=== PATIENT | male | born 1980 | race Caucasian/White ===

== ENCOUNTER 2020-08-07 10:27 | Emergency (ER) | payer SELFPAY ==
--- NOTE | 2020-08-07 12:29 | EDPHYS ---
Physician Documentation [facility] Name: Adrian Pires Age: 39 yrs Sex: Male : 1980 Arrival Date: 08/07/2020 Time: 10: Bed 17 Private MD: ED Physician Tulio Cervantes HPI: 08/07 12:25 This 39 yrs old Male presents to ER via Ambulatory with complaints of Fever, jr8 Congestion, Cough. 12:25 The patient reports fever, with an emergency department temperature of 99.5 degrees jr8 Fahrenheit. Onset: The symptoms/episode began/occurred gradually, 3 day(s) ago. Modifying factors: there are no obvious modifying factors. Associated signs and symptoms: Pertinent positives: cough, myalgias, runny nose, sinus congestion. Severity of symptoms: At their worst the symptoms were mild in the emergency department the symptoms are unchanged. The patient has not experienced similar symptoms in the past. The patient has not recently seen a physician. Historical: - Allergies: 10:43 Tramadol HCl; ll1 - PMHx: 10:43 HIV; Hep C-resolved; ll1 - PSHx: 10:43 kidney stone SX; ll1 - Immunization history:: Flu vaccine is not up to date. - Social history:: Smoking status: Patient denies any tobacco usage or history of. ROS: 12:25 Constitutional: Positive for body aches, chills, fatigue, fever. jr8 12:25 ENT: Positive for rhinorrhea, sinus congestion. 12:25 Respiratory: Positive for cough, Negative for dyspnea on exertion, shortness of breath, sputum production, wheezing. 12:25 Neuro: Positive for headache. 12:25 All other systems are negative. Exam: 12:25 Constitutional: This is a well developed, well nourished patient who is awake, alert, jr8 and in no acute distress. Eyes: Pupils equal round and reactive to light, extra-ocular motions intact. Lids and lashes normal. Conjunctiva and sclera are non-icteric and not injected. Cornea within normal limits. Periorbital areas with no swelling, redness, or edema. ENT: Nares patent. No nasal discharge, no septal abnormalities noted. Tympanic membranes are normal and external auditory canals are clear. Oropharynx with no redness, swelling, or masses, exudates, or evidence of obstruction, uvula midline. Mucous membranes moist. Neck: Trachea midline, no thyromegaly or masses palpated, and no cervical lymphadenopathy. Supple, full range of motion without nuchal rigidity, or vertebral point tenderness. No Meningismus. Cardiovascular: Regular rate and rhythm with a normal S1 and S2. No gallops, murmurs, or rubs. Normal PMI, no JVD. No pulse deficits. Respiratory: Lungs have equal breath sounds bilaterally, clear to auscultation and percussion. No rales, rhonchi or wheezes noted. No increased work of breathing, no retractions or nasal flaring. Abdomen/GI: Soft, non-tender, with normal bowel sounds. No distension or tympany. No guarding or rebound. No evidence of tenderness throughout. Skin: Warm, dry with normal turgor. Normal color with no rashes, no lesions, and no evidence of cellulitis. MS/ Extremity: Pulses equal, no cyanosis. Neurovascular intact. Full, normal range of motion. Neuro: Awake and alert, GCS 15, oriented to person, place, time, and situation. Cranial nerves II-XII grossly intact. Motor strength 5/5 in all extremities. Sensory grossly intact. Cerebellar exam normal. Normal gait. Vital Signs: 10:40 BP 136 / 85; Pulse 86; Resp 17; Temp 99.5; Pulse Ox 97% on R/A; Weight 77.11 kg; Height ll1 5 ft. 8 in. (172.72 cm); Pain 4/10; 12:30 BP 113 / 76; Pulse 83; Resp 17 S; Pulse Ox 98% on R/A; jd3 10:40 Body Mass Index 25.85 (77.11 kg, 172.72 cm) ll1 MDM: 11:02 Patient medically screened. jr8 12:26 Data reviewed: vital signs, nurses notes, lab test result(s), and as a result, I will jr8 discharge patient. Data interpreted: Pulse oximetry: on room air is 97 %. Interpretation: normal. Counseling: I had a detailed discussion with the patient and/or guardian regarding: the historical points, exam findings, and any diagnostic results supporting the discharge/admit diagnosis, lab results, the need for outpatient follow up, a family practitioner, to return to the emergency department if symptoms worsen or persist or if there are any questions or concerns that arise at home. ED course: Discussed with patient negative SARS results. Most likely viral infection. Would treat symptomatically at this point. To f/u with PCP in a few days. If after a week still having fevers and sinus congestion or drainage to come back for reevaluation and possible need for Abx. . 08/07 12:25 Order name: SARS-COV-2 RT PCR; Complete Time: 12:26 EDTN Administered Medications: 12:32 Drug: Decadron (dexamethasone) 10 mg Route: IM; Site: right deltoid; jd3 Disposition: 16:37 Co-signature as Attending Physician, Tulio Cervantes MD I agree with the assessment and kdr plan of care. Disposition: 08/07/20 12:28 Discharged to Home. Impression: Acute upper respiratory infection, unspecified. - Condition is Stable. - Discharge Instructions: Upper Respiratory Infection, Adult. - Prescriptions for promethazine- DM 6.25-15 mg/5 mL Oral syrup - take 5 milliliter by ORAL route every 4 hours as needed; 100 milliliter. - Medication Reconciliation Form, Thank You Letter, Antibiotic Education, Prescription Opioid Use form. - Follow up: Private Physician; When: 1 week; Reason: Recheck today's complaints, Continuance of care, Re-evaluation by your physician. - Problem is new. - Symptoms are unchanged. Signatures: Dispatcher [employer] [facility] Tulio Cervantes MD MD [facility] Zackery Bahena PA PA jr8 Arnold Moreno RN RN jd3 Artur Huffman RN RN ll1 Corrections: (The following items were deleted from the chart) 11:46 11:07 CORONAVIRUS+MR.LAB.BRZ ordered. [facility] 12:53 12:28 08/07/2020 12:28 Discharged to Home. Impression: Acute upper respiratory jd3 infection, unspecified. Condition is Stable. Forms are Medication Reconciliation Form, Thank You Letter, Antibiotic Education, Prescription Opioid Use. Follow up: Private Physician; When: 1 week; Reason: Recheck today's complaints, Continuance of care, Re-evaluation by your physician. Problem is new. Symptoms are unchanged. jr8
--- NOTE | 2020-08-07 12:29 | ER ---
Nurse's Notes [facility] Name: Adrian Pires Age: 39 yrs Sex: Male : 1980 Arrival Date: 08/07/2020 Time: : Bed 17 [facility] MD: Diagnosis: Acute upper respiratory infection, unspecified Presentation: 08/07 10:40 Chief complaint: Patient states: Fever, cough, congestion, loss of taste, fatigue, weak ll1 since Monday morning. Fever 101.5 at home. Coronavirus screen: Client denies travel out of the [place] in the last 14 days. congestion, cough unrelated to allergies, fatigue, fever, headache, loss of taste or smell, Client presents with at least one sign or symptom that may indicate coronavirus-19. Standard/surgical mask placed on the client. Ebola Screen: Patient denies travel to an Ebola-affected area in the 21 days before illness onset. Resp Distress? No respiratory distress is noted at this time. 10:40 Method Of Arrival: Ambulatory ll1 10:42 Initial Sepsis Screen: Does the patient meet any 2 criteria? No. Patient's initial ll1 sepsis screen is negative. Does the patient have a suspected source of infection? Yes: Productive cough/pneumonia. Risk Assessment: Do you want to hurt yourself or someone else? Patient reports no desire to harm self or others. Onset of symptoms was August 05, 2020. 10:42 Acuity: MARTHA 3 ll1 Historical: - Allergies: 10:43 Tramadol HCl; ll1 - PMHx: 10:43 HIV; Hep C-resolved; ll1 - PSHx: 10:43 kidney stone SX; ll1 - Immunization history:: Flu vaccine is not up to date. - Social history:: Smoking status: Patient denies any tobacco usage or history of. Screenin:40 Abuse screen: Denies threats or abuse. Nutritional screening: No deficits noted. jd3 Tuberculosis screening: No symptoms or risk factors identified. Fall Risk Ambulatory Aid- None/Bed Rest/Nurse Assist (0 pts). Gait- Normal/Bed Rest/Wheelchair (0 pts) Mental Status- Oriented to own ability (0 pts). Total Patel Fall Scale indicates No Risk (0-24 pts). Assessment: 11:39 General: Appears in no apparent distress. comfortable, Behavior is calm, cooperative, jd3 appropriate for age. Pain: Complains of pain in head Quality of pain is described as aching. Neuro: Level of Consciousness is awake, alert, obeys commands, Oriented to person, place, time, situation. Cardiovascular: Denies chest pain, Capillary refill < 3 seconds Patient's skin is warm and dry. Respiratory: Reports cough that is non-productive, persistent Airway is patent Respiratory effort is even, unlabored, Respiratory pattern is regular, symmetrical. GI: No signs and/or symptoms were reported involving the gastrointestinal system. : No signs and/or symptoms were reported regarding the genitourinary system. EENT: Reports nasal congestion. Derm: Skin is intact, Skin is dry, Skin is normal, Skin temperature is warm. Musculoskeletal: Circulation, motion, and sensation intact. Range of motion: intact in all extremities. 12:30 Reassessment: Patient appears in no apparent distress at this time. No changes from jd3 previously documented assessment. Patient and/or family updated on plan of care and expected duration. Pain level reassessed. Patient is alert, oriented x 3, equal unlabored respirations, skin warm/dry/pink. 12:38 Reassessment: pt awaiting shot time before discharge. jd3 12:51 Reassessment: Patient appears in no apparent distress at this time. Patient and/or jd3 family updated on plan of care and expected duration. Pain level reassessed. Patient is alert, oriented x 3, equal unlabored respirations, skin warm/dry/pink. pt reported understanding of discharge instructions. even and steady gait upon discharge. Vital Signs: 10:40 BP 136 / 85; Pulse 86; Resp 17; Temp 99.5; Pulse Ox 97% on R/A; Weight 77.11 kg; Height ll1 5 ft. 8 in. (172.72 cm); Pain 4/10; 12:30 BP 113 / 76; Pulse 83; Resp 17 S; Pulse Ox 98% on R/A; jd3 10:40 Body Mass Index 25.85 (77.11 kg, 172.72 cm) ll1 ED Course: 10:28 Patient arrived in ED. as 10:33 Arm band placed on Patient placed in an exam room, on a stretcher. ll1 10:43 Triage completed. ll1 10:50 Zackery Bahena PA is PHCP. jr8 10:50 Tulio Cervantes MD is Attending Physician. jr8 11:30 Arnold Moreno, RN is Primary Nurse. jd3 11:40 Patient has correct armband on for positive identification. Bed in low position. Call jd3 light in reach. Side rails up X 1. Adult w/ patient. Pulse ox on. NIBP on. 12:40 No provider procedures requiring assistance completed. Patient did not have IV access jd3 during this emergency room visit. Administered Medications: 12:32 Drug: Decadron (dexamethasone) 10 mg Route: IM; Site: right deltoid; jd3 Outcome: 12:28 Discharge ordered by . jr8 12:52 Discharged to home ambulatory, with family. jd3 12:52 Condition: stable 12:52 Discharge instructions given to patient, Instructed on discharge instructions, follow up and referral plans. medication usage, Demonstrated understanding of instructions, follow-up care, medications, Prescriptions given X 1. 12:53 Patient left the ED. jd3 Signatures: Radha Montoya Josh, PA PA jr8 Arnold Moreno, RN RN jd3 Artur Huffman RN RN ll1
[2020-08-07] MEDS ORDERED: dexAMETHasone 10 MG/ML VIAL ONE (12:52)
[2020-08-07 13:03] VITALS: BP 113/76; O2SAT 98
[2020-08-07 13:05] VITALS: TEMP 99.5
== END 2020-08-07 12:53 | disposition home or self-care (01) ==
LOC: ER 10:27
DX: J06.9 Acute upper respiratory infection, unspecified (principal); Z21 Asymptomatic human immunodeficiency virus [HIV] infection status; Z20.822 Contact with and (suspected) exposure to COVID-19; Z88.5 Allergy status to narcotic agent
CPT/HCPCS: 96372; 99283; J1100; U0003

== ENCOUNTER 2020-11-22 12:01 | Emergency (ER) | payer BC, SELFPAY ==
--- NOTE | 2020-11-22 12:20 | ER ---
Nurse's Notes [facility] Name: Adrian Pires Age: 39 yrs Sex: Male : 1980 Arrival Date: 11/22/2020 Time: 12:05 Bed 30 Private MD: Diagnosis: Bitten by cat;Cellulitis of right upper limb-Hand Presentation: 11/22 12:11 Chief complaint: Right hand swelling and redness after bit by cat 2 days ago. hb Coronavirus screen: At this time, the client does not indicate any symptoms associated with coronavirus-19. Ebola Screen: No symptoms or risks identified at this time. Initial Sepsis Screen: Does the patient meet any 2 criteria? No. Patient's initial sepsis screen is negative. Does the patient have a suspected source of infection? No. Patient's initial sepsis screen is negative. Risk Assessment: Do you want to hurt yourself or someone else? Patient reports no desire to harm self or others. Onset of symptoms was November 20, 2020. 12:11 Method Of Arrival: Ambulatory 12:11 Acuity: MARTHA 3 hb Triage Assessment: 12:14 Bite description: bite sustained to right hand is from animal, was sustained 2 days kg ago. by a cat, animal information: vaccination(s). General: Appears in no apparent distress. Behavior is calm, cooperative, appropriate for age, quiet. Historical: - Allergies: 12:13 Tramadol HCl; hb - PMHx: 12:13 Hep C-resolved; HIV; hb - Immunization history:: Client reports receiving the 2nd dose of the Covid vaccine. - Social history:: Smoking status: Reported history of juuling and/or vaping. - Family history:: not pertinent. - Hospitalizations: : No recent hospitalization is reported. Screenin:13 Abuse screen: Denies threats or abuse. Denies injuries from another. Nutritional kg screening: No deficits noted. Tuberculosis screening: No symptoms or risk factors identified. Fall Risk None identified. Assessment: 12:11 General: Appears in no apparent distress. Behavior is calm, cooperative, appropriate kg for age, quiet. Pain: Complains of pain in right hand Pain currently is 1 out of 10 on a pain scale. at worst was 10 out of 10 on a pain scale. level that patient reports is acceptable is 3 out of 10 on a pain scale. Quality of pain is described as aching, throbbing, Pain began 2-3 days ago. Is intermittent. Neuro: No deficits noted. Cardiovascular: No deficits noted. Respiratory: No deficits noted. GI: No deficits noted. : No deficits noted. EENT: No deficits noted. Derm: Skin is intact, Skin is dry, Skin is red, Skin temperature is warm. Musculoskeletal: Swelling present in right hand. Vital Signs: 12:11 BP 126 / 86; Pulse 84; Resp 16; Temp 97.3; Pulse Ox 97% on R/A; Weight 90.72 kg; Height hb 5 ft. 8 in. (172.72 cm); Pain 1/; 12:11 Body Mass Index 30.41 (90.72 kg, 172.72 cm) hb ED Course: 12:05 Patient arrived in ED. rg4 12:11 Barbara Judge, RN is Primary Nurse. kg 12:11 Arm band placed on. hb 12:12 Shaheen Claire MD is Attending Physician. rn 12:13 Triage completed. hb 12:13 Patient has correct armband on for positive identification. Bed in low position. Call kg light in reach. Side rails up X2. 12:25 No provider procedures requiring assistance completed. Patient did not have IV access hb during this emergency room visit. Administered Medications: No medications were administered Outcome: 12:20 Discharge ordered by . rn 12:25 Discharged to home ambulatory, with significant other. hb 12:25 Condition: stable 12:25 Discharge instructions given to patient, significant other, Instructed on discharge instructions, follow up and referral plans. medication usage, Demonstrated understanding of instructions, follow-up care, medications, Prescriptions given X 2. 12:25 Patient left the ED. hb Signatures: Shaheen Claire MD MD rn Baxter, Heather, RN RN hb Garcia, Rubi rg4 Barbara Judge RN RN kg
--- NOTE | 2020-11-22 12:20 | EDPHYS ---
Physician Documentation [facility] Name: Adrian Pires Age: 39 yrs Sex: Male : 1980 Arrival Date: 11/22/2020 Time: 12:05 Bed 30 Private MD: ED Physician Shaheen Claire HPI: 11/22 12:17 This 39 yrs old Male presents to ER via Ambulatory with complaints of Cat rn Bite. 12:17 The patient was bitten on the right hand, by a cat, for an unknown reason, at home. rn Onset: The symptoms/episode began/occurred 2 day(s) ago. Animal information: Animal's vaccinations are up to date. Secondary to the bite the patient reports swelling, warmth. Associated signs and symptoms: Pertinent positives: erythema at site, Pertinent negatives: fever, fluctuance. Severity of symptoms: At their worst the symptoms were mild, in the emergency department the symptoms are unchanged. The patient has not experienced similar symptoms in the past. The patient has not recently seen a physician. Patient reports interacting with neighbors cat on Monday. Cat bit right hand. Now increased swelling and redness to the site. No fever. Isolated pain to dorsum of right hand.. Historical: - Allergies: 12:13 Tramadol HCl; hb - PMHx: 12:13 Hep C-resolved; HIV; hb - Immunization history:: Client reports receiving the 2nd dose of the Covid vaccine. - Social history:: Smoking status: Reported history of juuling and/or vaping. - Family history:: not pertinent. - Hospitalizations: : No recent hospitalization is reported. ROS: 12:17 Constitutional: Negative for fever, chills, and weight loss, MS/Extremity: Positive for rn bite and swelling to right dorsum hand Skin: Redness and swelling to dorsum of right hand Neuro: Negative for numbness or tingling at site or distal Exam: 12:17 Constitutional: This is a well developed, well nourished patient who is awake, alert, rn and in no acute distress. MS/ Extremity: Pulses equal, no cyanosis. Neurovascular intact. Full, normal range of motion. Mild swelling and erythema/warmth to dorsum of right hand with numerous small puncture wounds, no fluctuance, no extension past the wrist. Most prominent the dorsum of the first webspace. Vital Signs: 12:11 BP 126 / 86; Pulse 84; Resp 16; Temp 97.3; Pulse Ox 97% on R/A; Weight 90.72 kg; Height hb 5 ft. 8 in. (172.72 cm); Pain 1/10; 12:11 Body Mass Index 30.41 (90.72 kg, 172.72 cm) hb MDM: 12:12 Patient medically screened. rn 12:17 Differential diagnosis: cellulitis. Data reviewed: vital signs, nurses notes, and as a rn result, I will discharge patient. Counseling: I had a detailed discussion with the patient and/or guardian regarding: the historical points, exam findings, and any diagnostic results supporting the discharge/admit diagnosis, the need for outpatient follow up, to return to the emergency department if symptoms worsen or persist or if there are any questions or concerns that arise at home. Special discussion: I discussed with the patient/guardian in detail that at this point there is no indication for admission to the hospital. It is understood, however, that if the symptoms persist or worsen the patient needs to return immediately for re-evaluation. Administered Medications: No medications were administered Disposition Summary: 11/22/20 12:20 Discharge Ordered Location: Home rn Problem: new rn Symptoms: have improved rn Condition: Stable rn Diagnosis - Bitten by cat rn - Cellulitis of right upper limb - Hand rn Followup: rn - With: Private Physician - When: As needed - Reason: Recheck today's complaints, Re-evaluation by your physician Discharge Instructions: - Discharge Summary Sheet rn - Cellulitis, Adult rn - Animal Bite, Adult rn Forms: - Medication Reconciliation Form rn - Thank You Letter rn - Antibiotic internal sales engineer - Prescription Opioid Use rn Prescriptions: - Augmentin 875-125 mg Oral Tablet - take 1 tablet by ORAL route every 12 hours for 10 days; 20 tablet; Refills: 0, rn Product Selection Permitted - Doxycycline Hyclate 100 mg Oral Tablet - take 1 tablet by ORAL route once daily; 10 tablet; Refills: 0, Product rn Selection Permitted Signatures: Shaheen Claire MD MD rn Baxter, Heather, RN RN hb
[2020-11-22 12:31] VITALS: BP 126/86; TEMP 97.3; O2SAT 97
== END 2020-11-22 12:25 | disposition home or self-care (01) ==
LOC: ER 12:01
DX: L03.113 Cellulitis of right upper limb (principal); W55.01XA Bitten by cat, initial encounter; Y92.89 Other specified places as the place of occurrence of the external cause; Z88.5 Allergy status to narcotic agent; Z21 Asymptomatic human immunodeficiency virus [HIV] infection status
CPT/HCPCS: 99282

== ENCOUNTER 2021-03-05 12:42 | Emergency (ER) | payer BC ==
--- NOTE | 2021-03-05 15:44 | ER ---
Nurse's Notes [facility] Name: Adrian Pires Age: 40 yrs Sex: Male : 1980 Arrival Date: 03/05/2021 Time: 12:45 Bed Waiting [facility] MD: Diagnosis: Presentation: 03/05 13:00 Chief complaint: Patient states: cough and congestion x 2 weeks. Denies fever. ss Coronavirus screen: Client denies travel out of the [place] in the last 14 days. Ebola Screen: Patient denies exposure to infectious person. Patient denies travel to an Ebola-affected area in the 21 days before illness onset. Initial Sepsis Screen: Does the patient meet any 2 criteria? No. Patient's initial sepsis screen is negative. Does the patient have a suspected source of infection? No. Patient's initial sepsis screen is negative. Risk Assessment: Do you want to hurt yourself or someone else? Patient reports no desire to harm self or others. Onset of symptoms was February 19, 2021. 13:00 Method Of Arrival: Ambulatory ss 13:00 Acuity: MARTHA 4 Historical: - Allergies: 13:03 Tramadol HCl; ss - PMHx: 13:03 Hep C-resolved; HIV; ss - Immunization history:: Client reports receiving the 2nd dose of the Covid vaccine. - Social history:: Smoking status: Reported history of juuling and/or vaping. Assessment: 15:41 Reassessment: Called to exam room from [facility] twice. No answer. Unable to locate patient. Vital Signs: 13:03 BP 146 / 103; Pulse 98; Resp 16; Temp 98.3(TE); Pulse Ox 100% on R/A; Weight 92.99 kg; Height 5 ft. 7 in. (170.18 cm); Pain 0/10; 13:03 Body Mass Index 32.11 (92.99 kg, 170.18 cm) ED Course: 12:45 Patient arrived in ED. ds1 13:02 Triage completed. 13:03 Arm band placed on right wrist. Administered Medications: No medications were administered Outcome: 15:43 Patient left the ED. Signatures: Xochilt Campos ds1 Trisha Pina, RN RN
[2021-03-05 16:00] VITALS: BP 146/103; TEMP 98.3; O2SAT 100
== END 2021-03-05 15:43 | disposition left against medical advice (07) ==
LOC: ER 12:42
DX: Z53.21 Procedure and treatment not carried out due to patient leaving prior to being seen by health care provider (principal)
CPT/HCPCS: 99281